=== PATIENT | male | born 1960 | race African-American/Black ===

== ENCOUNTER 2018-07-12 22:53 | Emergency (ER) | payer BC, OTHER, MEDICAID ==
[~2018-07-12] VITALS: Ht 180.3 cm; Wt 91.0 kg
[~2018-07-12 22:53] MED LIST: BIMA2.5D4 OP; OFLO5DRO3 OP
[2018-07-13 01:22] VITALS: BP 154/87
== END 2018-07-13 01:30 | disposition home or self-care (01) ==
LOC: ER 23:20
DX: H61.23 Impacted cerumen, bilateral (principal); H60.93 Unspecified otitis externa, bilateral; I12.0 Hypertensive chronic kidney disease with stage 5 chronic kidney disease or end stage renal disease; E11.22 Type 2 diabetes mellitus with diabetic chronic kidney disease; N18.6 End stage renal disease; Z99.2 Dependence on renal dialysis
CPT/HCPCS: 69209; 99283

== ENCOUNTER 2020-04-02 01:06 | Emergency (ER) | payer MEDICARE, OTHER ==
[~2020-04-02] VITALS: Ht 177.8 cm; Wt 114.0 kg
[2020-04-02] MEDS ORDERED: ASPIRIN 325MG TABLET PO ONE (02:15)
[2020-04-02 03:28] LABS: CHLORIDE 100 mEq/L (98-107)
[2020-04-02 03:29] LABS: HEMATOCRIT 33.7 % (42.0-52.0); HEMOGLOBIN 11.2 g/dL (14.0-18.0); MEAN CORPUSCULAR HEMOGLOBIN 33.1 pg (28.0-32.0); MEAN CORPUSCULAR VOLUME 99.7 fL (80.0-94.0); PLATELET 144 x1000/uL (130-400); RED BLOOD CELL COUNT 3.38 mill/uL (4.7-6.1); RED CELL DISTRIBUTION WIDTH 14.6 % (11.6-14.6)
[2020-04-02 03:34] LABS: C REACTIVE PROTEIN QUANT 6.6 mg/L (0.0-3.0)
[2020-04-02 06:00] VITALS: BP 141/77
== END 2020-04-02 06:22 | disposition short-term general hospital (02) ==
LOC: ER 01:06
DX: H54.7 Unspecified visual loss (principal); N18.6 End stage renal disease; Z99.2 Dependence on renal dialysis
CPT/HCPCS: 36415; 80053; 85027; 85651; 86140; 99285